=== PATIENT | male | born 1985 | race Caucasian/White ===

== ENCOUNTER 2017-10-29 01:13 | Emergency (ER) | payer OTHER ==
--- NOTE | 2017-10-29 01:57 | ED ---
Lower Extremity Injury HPI - General Chief Complaint: Extremity Injury, Lower Stated Complaint: Ankle Injury Time Seen by Provider: 10/29/17 01:28 Source: patient, RN notes reviewed, old records reviewed Mode of arrival: ambulatory Limitations: no limitations - History of Present Illness Initial Comments: This patient is a 32 year old male with CC of rolling right ankle while playing basketball today. He reports he rolled it twice. States that he has pain in his foot, and pain to lateral ankle. Denies paresthesias. He has sprained this ankle many times before. - Related Data Home Medications Medication Instructions Recorded Confirmed ALPRAZolam [Xanax] 1 mg PO Q8HR PRN 03/14/16 10/29/17 Citalopram Hydrobromide [CeleXA] 50 mg PO DAILY 03/14/16 10/29/17 Previous Rx's Medication Instructions Recorded Ibuprofen [Motrin] 600 mg PO Q8HR PRN #20 tab 10/29/17 Allergies Allergy/AdvReac Type Severity Reaction Status Date / Time codeine Allergy Rash/Hives Verified 03/14/16 20:49 Review of Systems ROS Statement: Those systems with pertinent positive or pertinent negative responses have been documented in the HPI. ROS Other: All systems not noted in ROS Statement are negative. Constitutional: Denies: chills Eyes: Denies: eye pain ENT: Denies: ear pain Respiratory: Denies: cough, dyspnea Cardiovascular: Denies: chest pain Endocrine: Denies: fatigue Gastrointestinal: Denies: abdominal pain Genitourinary: Denies: as per HPI, dysuria Musculoskeletal: Reports: joint swelling (right ankle). Denies: back pain Skin: Denies: lesions Past Medical History Past Medical History: No Reported History History of Any Multi-Drug Resistant Organisms: None Reported Past Surgical History: No Surgical Hx Reported Past Psychological History: No Psychological Hx Reported Smoking Status: Current every day smoker Past Alcohol Use History: Occasional Past Drug Use History: Marijuana General Exam - General Exam Comments Initial Comments: This is a pleasant 32 year old male, no distress. Limitations: no limitations Head exam: Present: atraumatic, normocephalic, normal inspection Eye exam: Present: normal appearance, PERRL, EOMI. Absent: scleral icterus, conjunctival injection, periorbital swelling ENT exam: Present: normal exam, mucous membranes moist Neck exam: Present: normal inspection. Absent: tenderness, meningismus, lymphadenopathy Respiratory exam: Present: normal lung sounds bilaterally. Absent: respiratory distress, wheezes, rales, rhonchi, stridor Cardiovascular Exam: Present: regular rate, normal rhythm, normal heart sounds. Absent: systolic murmur, diastolic murmur, rubs, gallop, clicks Right Lower Leg exam: Present: normal inspection, full ROM Ankle exam: Present: tenderness, swelling (lateral malleoulus). Absent: normal inspection Foot/Toe exam: Present: tenderness, swelling (over 5th netatarsal) Neurovascular tendon exam: Present: no vascular compromise Gait: observed and limited by pain Back exam: Present: normal inspection Neurological exam: Present: alert, oriented X3, CN II-XII intact Course Vital Signs 10/29/17 10/29/17 01:17 02:32 Temperature 97.9 F 97.3 F L Pulse Rate 76 78 Respiratory 18 16 Rate Blood Pressure 176/105 143/88 O2 Sat by Pulse 99 Oximetry Procedures - Orthopedic Splinting/Casting Injury #1 Side: right Lower Extremity Injury Location: ankle Lower Extremity Immobilizer: AirCast, Jonatan wrap Medical Decision Making - Medical Decision Making This patient is a 32 year old male with CC of rolling right ankle while playing basketball today. Patient has tenderness and swelling to ankle. Xray show no fracture. Placed in acewrap and aircast. Discussed follow up with ortho. Discharged with pain medication. - Radiology Data Radiology results: report reviewed Xray foot and tibfib are negative for acute process. Disposition Clinical Impression: Right ankle sprain Disposition: HOME SELF-CARE Condition: Good Instructions: Ankle Sprain (ED) Additional Instructions: Patient has follow-up with family centered specialist. Wear the Jonatan wrap. AMbulate with Crutches. Return to the emergency department if any alarming signs or symptoms occur. Prescriptions: Ibuprofen [Motrin] 600 mg PO Q8HR PRN #20 tab PRN Reason: Pain Referrals: Nessa Diaz III, MD [Primary Care Provider] - 1-2 days Satish Dominguez MD [STAFF PHYSICIAN] - 1-2 days Time of Disposition: 02:11
--- NOTE | 2017-10-29 01:59 | XR ---
EXAM: XR Right Tibia and Fibula, 2 Views CLINICAL HISTORY: Pain, trauma TECHNIQUE: Frontal and lateral views of the right tibia and fibula. COMPARISON: No relevant prior studies available. FINDINGS: Bones/joints: No acute fracture or malalignment. Soft tissues: Unremarkable. No radiopaque foreign body. IMPRESSION: No acute fracture or malalignment.
--- NOTE | 2017-10-29 01:59 | XR ---
EXAM: XR Right Foot Complete, 3 or More Views CLINICAL HISTORY: Pain, trauma TECHNIQUE: Frontal, lateral and oblique views of the right foot. COMPARISON: No relevant prior studies available. FINDINGS: Bones/joints: No acute fracture or malalignment. Soft tissues: Unremarkable. No radiopaque foreign body. IMPRESSION: No acute fracture or malalignment.
[2017-10-29] MEDS ORDERED: IBUPROFEN 600 MG STARTER PACK 4 TAB BTL PO STA (02:11)
[2017-10-29] MEDS ORDERED: traMADol 50 MG STARTER PACK 3 TAB BTL PO STA (02:11)
[2017-10-29 02:34] VITALS: BP 143/88; PULSE 78; RESP 16; TEMP 97.3
== END 2017-10-29 02:34 | disposition home or self-care (01) ==
LOC: EC 01:13
DX: S93.401A Sprain of unspecified ligament of right ankle, initial encounter (principal); F17.200 Nicotine dependence, unspecified, uncomplicated; Z79.899 Other long term (current) drug therapy; Z88.5 Allergy status to narcotic agent; X50.1XXA Overexertion from prolonged static or awkward postures, initial encounter; Y93.67 Activity, basketball
CPT/HCPCS: 99284

== ENCOUNTER → 2017-11-07 | Outpatient (CLI) | payer OTHER ==
--- NOTE | 2017-11-08 16:54 | XR ---
EXAMINATION TYPE: XR foot complete RT DATE OF EXAM: 11/07/2017 COMPARISON: NONE HISTORY: 32 year-old male right foot pain after twisting injury, lateral pain and swelling TECHNIQUE: 3 views FINDINGS: No acute fracture, subluxation, or dislocation. Joint spaces throughout are maintained. There may be very mild bunion formation. IMPRESSION: No acute osseous abnormality seen.
== END | disposition home or self-care (01) ==
LOC: RADXRMAIN 12:51
PROVIDERS: ATTEND Family Medicine
DX: S96.811A Strain of other specified muscles and tendons at ankle and foot level, right foot, initial encounter (principal)

== ENCOUNTER → 2018-05-07 | Outpatient (CLI) | payer OTHER ==
--- NOTE | 2018-05-07 14:10 | EST ---
EXERCISE STRESS AGE: 33 SEX: M HT: 5'6" WT: 156 PROTOCOL: Lester Stress Test STAGE: IV DURATION OF EXERCISE: 13:01 HEART RATE REST: 58 BLOOD PRESSURE REST: 126/94 MAXIMUM HEART RATE ACHIEVED: 165 MAXIMUM BLOOD PRESSURE: 208/68 85% MPHR: 157 100% MPHR: 185 METS: 13.5 INDICATIONS: Chest pain. CLINICAL INFORMATION: Baseline rhythm is sinus mechanism, rate of 58, normal axis, intervals. Normal echocardiogram. Baseline blood pressure 126/94 mmHg. Patient exercised on Lester protocol for 13 minutes 1 second reaching peak rate of 165 beats per minute which is above his 85% maximum predicted heart rate. Peak blood pressure 208/68 mmHg. Test was terminated due to fatigue. There was no chest pain. Electrocardiograph monitoring revealed a [address]-segment depression inferolateral leads that resolved rapidly in recovery. CONCLUSION: 1. Excellent exercise tolerance with a more than a positive electrocardiograph stress testing with [address]-segment changes at peak exercise. 2. If clinically indicated, an imaging stress echocardiogram would be helpful. MMODL / IJN: [id number] /
== END ==
LOC: RADNMMAIN 08:55
PROVIDERS: ATTEND Nurse Practitioner Family
DX: I49.9 Cardiac arrhythmia, unspecified (principal); R07.9 Chest pain, unspecified
CPT/HCPCS: 93017

== ENCOUNTER → 2018-05-08 | Outpatient (CLI) | payer OTHER ==
--- NOTE | 2018-05-08 18:34 | ECHOF ---
Referral Reason:I49.9Cardiac arrhythmia, R07.9Chest pain MEASUREMENTS -------- HEIGHT: 167.6 cm WEIGHT: 70.3 kg BP: RVIDd: 3.1 cm (< 3.3) IVSd: 1.1 cm (0.6 - 1.1) LVIDd: 4.8 cm (3.9 - 5.3) LVPWd: 1.2 cm (0.6 - 1.1) IVSs: 1.8 cm LVIDs: 2.8 cm LVPWs: 1.4 cm LA Diam: 3.0 cm (2.7 - 3.8) LAESV Index (A-L): 19.15 ml/m Ao Diam: 3.3 cm (2.0 - 3.7) AV Cusp: 2.5 cm (1.5 - 2.6) MV EXCURSION: 17.701 mm (> 18.000) MV EF SLOPE: 66 mm/s (70 - 150) EPSS: 0.3 cm MV E Esau: 0.93 m/s MV DecT: 170 ms MV A Esau: 0.62 m/s MV E/A Ratio: 1.51 RAP: 5.00 mmHg RVSP: 27.00 mmHg FINDINGS -------- Sinus rhythm with extra systolic beats. This was a technically good study. The left ventricular size is normal. There is borderline concentric left ventricular hypertrophy. Overall left ventricular systolic function is normal with, an EF between 55 - 60 %. The right ventricle is normal in size. Normal LA size by volume 22+/-6 ml/m2. The right atrium is normal in size. The aortic valve is trileaflet, and appears structurally normal. No aortic stenosis or regurgitation. The mitral valve is normal. Mild tricuspid regurgitation present. Right ventricular systolic pressure is normal at < 35 mmHg. There is no pulmonic regurgitation present. The aortic root size is normal. Normal inferior vena cava with normal inspiratory collapse consistent with estimated right atrial pre ssure of 5 mmHg. There is no pericardial effusion. CONCLUSIONS -------- 1. Sinus rhythm with extra systolic beats. 2. This was a technically good study. 3. The left ventricular size is normal. 4. There is borderline concentric left ventricular hypertrophy. 5. Overall left ventricular systolic function is normal with, an EF between 55 - 60 %. 6. Normal LA size by volume 22+/-6 ml/m2. 7. The aortic valve is trileaflet, and appears structurally normal. No aortic stenosis or regurgitati on. 8. The mitral valve is normal. 9. Mild tricuspid regurgitation present. 10. Right ventricular systolic pressure is normal at < 35 mmHg. 11. There is no pulmonic regurgitation present. 12. The aortic root size is normal. 13. Normal inferior vena cava with normal inspiratory collapse consistent with estimated right atrial pressure of 5 mmHg. 14. There is no pericardial effusion. TIME PIECE REPAIRER: Ashley Waldron RDCS
== END | disposition home or self-care (01) ==
LOC: RADECHMAIN 14:07
PROVIDERS: ATTEND Family Medicine
DX: I07.1 Rheumatic tricuspid insufficiency (principal)
CPT/HCPCS: 93306

== ENCOUNTER → 2018-05-15 | Outpatient (CLI) | payer OTHER ==
--- NOTE | 2018-05-15 12:29 | NM ---
EXAMINATION TYPE: NM stress cardiolite complete DATE OF EXAM: 05/15/2018 COMPARISON: NONE HISTORY: TECHNIQUE: After the intravenous administration of 9.97 mCi Tc 99m Sestamibi - Rest images obtained 45 minutes post injection. The patient exercised using a SEPIDEH protocol and 1 minute prior to peak exercise was injected with 26.2 mCi Tc 99m Sestamibi - Stress images obtained 5 minutes post injectio n. FINDINGS: Targeted heart rate was achieved during performance of the study. Review of stress and rest SPECT kaleb ges demonstrates no distinct perfusion abnormality. Gated analysis shows normal wall motion with an estimated left ventricular ejection fraction of 68 %. IMPRESSION: No scintigraphic evidence for reversible ischemia. Consider echocardiographic correlation for
--- NOTE | 2018-05-15 13:06 | EST ---
EXERCISE STRESS DATE OF SERVICE: 05/15/2018 AGE: 33 SEX: Male HT: 66" WT: 155 pounds PROTOCOL: Cardiolite Lester STAGE: IV DURATION OF EXERCISE: 12 minutes 57 seconds HEART RATE REST: 70 BLOOD PRESSURE REST: 123/73 MAXIMUM HEART RATE ACHIEVED: 161 MAXIMUM BLOOD PRESSURE: 145/79 85% MPHR: 157 100% MPHR: 185 METS: 12.1 INDICATIONS: Chest pain, palpitations. CLINICAL INFORMATION: Baseline EKG revealed normal sinus rhythm with borderline voltage criteria for LVH. Patient walked for 12 minutes 57 seconds, achieved a maximal heart rate of 161 beats per minute, developed fatigue and shortness of breath and did not have angina or arrhythmia. By EKG criteria, this is a negative stress test with excellent exercise capacity. The nuclear scan results which are more pertinent, will be reported by the radiologist. FINAL IMPRESSION: 1. Excellent exercise capacity with a negative stress test by EKG criteria without subjective symptoms of angina. 2. The nuclear scan results, which are more pertinent, will be reported by the radiologist. MMMERARY / LAURAN: [id number] /
== END | disposition home or self-care (01) ==
LOC: RADNMMAIN 08:37
PROVIDERS: ATTEND Family Medicine
DX: R94.39 Abnormal result of other cardiovascular function study (principal)
CPT/HCPCS: 93017; 78452; A9500

== ENCOUNTER 2021-10-24 08:41 | Emergency (ER) | payer OTHER ==
[2021-10-24 08:55] VITALS: BP 127/78; PULSE 115; RESP 19; TEMP 98
[2021-10-24] MEDS ORDERED: KETOROLAC 15 MG/ML 1 ML VIAL IVP STA (09:13)
[2021-10-24 09:43] LABS: Basophils # (A) 0.1 k/uL (0-0.2); Basophils % (A) 1 %; Eosinophils # (A) 0.3 k/uL (0-0.7); Eosinophils % (A) 3 %; HCT 43.7 % (39.0-53.0); HGB 14.5 gm/dL (13.0-17.5); Lymphocytes # (A) 1.9 k/uL (1.0-4.8); Lymphocytes % (A) 17 %; MCH 32.4 pg (25.0-35.0); MCHC 33.2 g/dL (31.0-37.0); MCV 97.7 fL (80.0-100.0); Mean Platelet Volume 7.7; Monocytes # (A) 0.8 k/uL (0-1.0); Monocytes % (A) 8 %; Neutrophils # (A) 7.5 k/uL (1.3-7.7); Neutrophils % (A) 70 %; Platelet Count 287 k/uL (150-450); RBC 4.48 m/uL (4.30-5.90); RDW 12.1 % (11.5-15.5); WBC 10.7 k/uL (3.8-10.6)
[2021-10-24 09:53] LABS: African American GFR (CKD) >90 (>60 ml/min/1.73 sqM); Anion Gap 8 mmol/L; Blood Urea Nitrogen 11 mg/dL (9-20); Calcium 9.1 mg/dL (8.4-10.2); Carbon Dioxide 24 mmol/L (22-30); Chloride 109 mmol/L (98-107); Glucose 121 mg/dL (74-99); Non-African American GFR(CKD) >90 (>60 ml/min/1.73 sqM); Potassium 3.8 mmol/L (3.5-5.1); Sodium 141 mmol/L (137-145)
--- NOTE | 2021-10-24 10:28 | CT ---
EXAMINATION TYPE: CT facial bones w con DATE OF EXAM: 10/24/2021 COMPARISON: None. HISTORY: dental abscess. Facial pain and swelling. CT DLP: 420.1 mGycm. Automated Exposure Control for Dose Reduction was Utilized. TECHNIQUE: CT scan of the facial bones is performed with IV Contrast, patient injected with 100 mL of Isovue 300. FINDINGS: There is focal mild to moderate subcutaneous edema and soft tissue swelling over the right mandible. There is streak artifact from cavitary fillings and crowns involving the bilateral maxillar y and mandibular teeth making evaluation slightly suboptimal. I do not see obvious dental lucency to suggest focal recurrent cavity or infection. Visualized portion of the mandible is intact. No suspici ous bony destruction or lucency. There is no well-formed fluid collection or abscess. No suspicious e nhancement is identified. There are prominent but subcentimeter lymph nodes throughout the neck bilaterally greatest posterior to the bilateral submandibular glands. Visualized portion of the airway is patent. Visualized portion of brain parenchyma is unremarkable. Visualized paranasal sinuses are clear. Nasal septum is deviated to right of midline. There is bilateral lens deviation or strabismus. IMPRESSION: Moderate soft tissue infection or cellulitis over the right mandible. No well-formed flui d collection or drainable abscess. Visualized portion of the airway remains patent.
[2021-10-24] MEDS ORDERED: cefTRIAXone IN SWFI 1,000 MG/10 ML SYRINGE IVP STA (10:33)
[2021-10-24] MEDS ORDERED: HYDROcodone/APAP 5-325MG 1 EACH TAB PO STA (10:34)
--- NOTE | 2021-10-24 10:37 | ED ---
ENT HPI - General Chief complaint: Dental/Oral Stated complaint: Dental Pain & Swelling Time Seen by Provider: 10/24/21 08:55 Source: patient, RN notes reviewed Mode of arrival: ambulatory Limitations: no limitations - History of Present Illness Initial comments: 36-year-old male presents emergency department complaining of right-sided facial pain, swelling. Patient states it started after a routine dental cleaning by days ago. Patient states that he did see his dentist Monday was placed on antibiotics. Patient states he started penicillin 4 times daily patient states that is was a fall tomorrow but symptoms seem to worsen tasers concern. No fe vers or chills no significant headache no neck pain or neck stiffness. - Related Data Home Medications Medication Instructions Recorded Confirmed ALPRAZolam [Xanax] 1 mg PO Q8HR PRN 03/14/16 10/29/17 Citalopram Hydrobromide [CeleXA] 50 mg PO DAILY 03/14/16 10/29/17 Previous Rx's Medication Instructions Recorded Ibuprofen [Motrin] 600 mg PO Q8HR PRN #20 tab 10/29/17 Allergies Allergy/AdvReac Type Severity Reaction Status Date / Time codeine Allergy Rash/Hives Verified 10/24/21 08:55 Review of Systems ROS Statement: Those systems with pertinent positive or pertinent negative responses have been documented in the HPI. ROS Other: All systems not noted in ROS Statement are negative. Past Medical History Past Medical History: No Reported History History of Any Multi-Drug Resistant Organisms: None Reported Past Surgical History: No Surgical Hx Reported Past Psychological History: Anxiety, Depression Smoking Status: Current every day smoker Past Alcohol Use History: Daily Past Drug Use History: Marijuana General Exam Limitations: no limitations General appearance: alert, in no apparent distress Head exam: Present: atraumatic, normocephalic, normal inspection Eye exam: Present: normal appearance, PERRL, EOMI. Absent: scleral icterus, conjunctival injection, periorbital swelling ENT exam: Present: mucous membranes moist, TM's normal bilaterally, normal external ear exam. Absent: normal oropharynx (Right-sided gum swelling noted, no drainable abscess, right-sided facial swelling) Neck exam: Present: normal inspection, full ROM. Absent: tenderness, meningismus, lymphadenopathy Respiratory exam: Present: normal lung sounds bilaterally. Absent: respiratory distress, wheezes, rales, rhonchi, stridor Cardiovascular Exam: Present: regular rate, normal rhythm, normal heart sounds. Absent: systolic murmur, diastolic murmur, rubs, gallop, clicks Course Vital Signs 10/24/21 08:52 Temperature 98 F Pulse Rate 115 H Respiratory 19 Rate Blood Pressure 127/78 O2 Sat by Pulse 98 Oximetry Medical Decision Making - Medical Decision Making Labs reveal no significant findings. CT does show facial swelling, no drainable abscess. Patient will continue oral antibiotics was given dose of IV antibiotics, pain control. Patient has a follow-up appointment tomorrow morning . Return parameters discussed - Lab Data Result diagrams: 10/24/21 09:34 10/24/21 09:34 Lab Results 10/24/21 10/24/21 10/24/21 Range/Units 09:34 09:34 09:34 WBC 10.7 H (3.8-10.6) k/uL RBC 4.48 (4.30-5.90) m/uL Hgb 14.5 (13.0-17.5) gm/dL Hct 43.7 (39.0-53.0) % MCV 97.7 (80.0-100.0) fL MCH 32.4 (25.0-35.0) pg MCHC 33.2 (31.0-37.0) g/dL RDW 12.1 (11.5-15.5) % Plt Count 287 (150-450) k/uL MPV 7.7 Neutrophils % 70 % Lymphocytes % 17 % Monocytes % 8 % Eosinophils % 3 % Basophils % 1 % Neutrophils # 7.5 (1.3-7.7) k/uL Lymphocytes # 1.9 (1.0-4.8) k/uL Monocytes # 0.8 (0-1.0) k/uL Eosinophils # 0.3 (0-0.7) k/uL Basophils # 0.1 (0-0.2) k/uL Sodium 141 (137-145) mmol/L Potassium 3.8 (3.5-5.1) mmol/L Chloride 109 H (98-107) mmol/L Carbon Dioxide 24 (22-30) mmol/L Anion Gap 8 mmol/L BUN 11 (9-20) mg/dL Creatinine 0.86 (0.66-1.25) mg/dL Est GFR (CKD-EPI)AfAm >90 (>60 ml/min/1.73 sqM) Est GFR (CKD-EPI)NonAf >90 (>60 ml/min/1.73 sqM) Glucose 121 H (74-99) mg/dL Plasma Lactic Acid Turner 1.3 (0.7-2.0) mmol/L Calcium 9.1 (8.4-10.2) mg/dL Disposition Clinical Impression: Dental infection Disposition: HOME SELF-CARE Condition: Stable Instructions (If sedation given, give patient instructions): Toothache (ED) Additional Instructions: Please follow-up with your scheduled dental appointment. Please return to emergency department for any worsening or change in symptoms. Is patient prescribed a controlled substance at d/c from ED?: No Referrals: Nessa Diaz III, MD [Primary Care Provider] - 1-2 days Time of Disposition: 10:37
== END 2021-10-24 10:58 | disposition home or self-care (01) ==
LOC: EC 08:41
DX: K04.7 Periapical abscess without sinus (principal); F17.200 Nicotine dependence, unspecified, uncomplicated; Z88.5 Allergy status to narcotic agent
CPT/HCPCS: 99284; 96374; 96375; 36415; 80048; 83605; 85025; 70487; J0696; J1885